=== PATIENT | male | born 1950 | race Caucasian/White ===

== ENCOUNTER 2017-08-29 13:29 | Outpatient (CLI) | payer MEDICARE ==
[2017-08-29 14:20] LABS: Bilirubin Negative (Negative); Blood, Urine Negative (Negative); Clarity CLEAR (Clear); Glucose, Urine (Dipstick) Negative (Negative); Leukocyte Negative (Negative); Nitrite Negative (Negative); Protein, Urine (Dipstick) Negative (Neg-Trace); Specific Gravity, Urine 1.018 (1.002-1.036); Urobilinogen 0.2 mg/dL (0.2-1.0)
[2017-08-29 14:22] LABS: Bacteria/HPF None Seen HPF (None Seen); Hyaline Casts/LPF 0-3 HYALINE CAST LPF (0-3 Hyaline); RBC/HPF 0-3 HPF (0-3); Squamous Epithelial None Seen HPF (0-3); WBC/HPF 0-3 HPF (0-3)
--- NOTE | 2017-08-29 14:58 | ULT ---
BILATERAL RENAL ULTRASOUND: Date: 08/29/17 INDICATION: History of polycystic kidney disease. COMPARISON: Prior exam dated 05/19/15. FINDINGS: The right kidney measures 10.0 x 5.8 x 5.7 cm. There is a stable 4.2 x 4.1 x 3.6 cm cyst involving th e inferior pole of the right kidney. The left kidney measures 10.6 x 5.8 x 5.8 cm. There is a peripelvic cyst measuring 3.1 x 2.6 x 2.3 cm , which is slightly larger than on the comparison in 2014 where it measured 1.9 x 1.7 x 1.5 cm. There is an inferior pole left renal cyst measuring 2.6 x 2.5 x 2.2 cm that was not definitely seen on the comparison examination. Pre-void bladder volume of 76 mL. Bladder wall thickness is 0.5-0.8 cm. IMPRESSION: 1. Slight interval enlargement of left peripelvic cyst. Inferior pole left renal cyst measuring 2.6 cm. Stable right renal cyst. 2. Mild bladder wall thickening may reflect sequelae of chronic bladder outlet obstruction. The [facility] [address] [place] appears similar to comparison from 2013. POS: [facility]
[2017-08-29 15:01] LABS: Anion Gap 14 mmol/L (10-20); BUN (Urea Nitrogen) 16 mg/dL (8.4-25.7); Calc. Creatinine Clearance 0 mL/min (70-130); Calcium 10.3 mg/dL (7.8-10.44); Carbon Dioxide 27 mmol/L (23-31); Chloride 101 mmol/L (98-107); Estimated GFR-MDRD 61; Glucose 80 mg/dL (80-115); Sodium 138 mmol/L (136-145)
== END 2017-08-29 13:30 | disposition home or self-care (01) ==
LOC: ULT 13:29
PROVIDERS: ATTEND Urology
DX: Q61.3 Polycystic kidney, unspecified (principal); N28.89 Other specified disorders of kidney and ureter
CPT/HCPCS: 76770; 80048; 81001; 87086; G0103